=== PATIENT | female | born 1945 | race Caucasian/White ===

== ENCOUNTER 2016-12-18 13:01 | Outpatient (CLI) | payer MEDICARE, MEDICAID ==
--- NOTE | 2016-12-19 15:52 | PET ---
PET CT: Clinical history: Lung cancer. Comparison: None. Radiopharmaceutical: 10.2 mCi fluorine 18 fdg IV. FINDINGS: There is appropriate bi-distribution of radiotracer activity. There is a lobular left upper lobe pul monary nodule with a component of a ground glass density measuring approximately 1.4 cm in diameter. This is not hyper metabolic by PET imaging with a maximum SUV of 1.6. There is nonspecific subtle g round glass nodularity of the left lower lobe anterior to the major fissure. There is otherwise no evidence of hypermetabolic mass or hypermetabolic adenopathy. Incidental note of diffuse vascular disease. There is mild colonic diverticulosis. Calcification at the right thyroid lobe is seen. There are symmetric areas of increased metabolic activity localizing to the articulation of the post erior ribs with thoracic spine, symmetrically and bilaterally favoring degenerative activity. IMPRESSION: Left upper lobe pulmonary nodule is present which is not hypermetabolic. There are additional reticu lonodular opacities of the left upper lobe, too small to further characterize and below the resoluti on for PET detection. Recommend continued imaging follow-up, as the morphologic feature of the dominant nodule is suspicio us for neoplasm. POS: [facility]
== END 2016-12-18 13:02 | disposition home or self-care (01) ==
LOC: PET 13:01
PROVIDERS: ATTEND Internal Medicine Pulmonary Disease
DX: C34.90 Malignant neoplasm of unspecified part of unspecified bronchus or lung (principal); R91.1 Solitary pulmonary nodule; R91.8 Other nonspecific abnormal finding of lung field
CPT/HCPCS: 78815; A9552